=== PATIENT | female | born 2000 | race Caucasian/White ===

== ENCOUNTER 2024-07-16 07:41 | Emergency (ER) | payer OTHER ==
[~2024-07-16] VITALS: Ht 154.9 cm; Wt 57.5 kg
[2024-07-16] MEDS ORDERED: UNIS25TA5 PO (07:53)
[2024-07-16 08:25] LABS: KETONE, URINE AUTO RFX 1+ mg/dL (NEGATIVE); LEUKOCYTE ESTERASE UR AUTO RFX NEGATIVE (NEGATIVE); MUCUS, URINE RFX LARGE (NEGATIVE); NITRITE, URINE AUTO RFX NEGATIVE (NEGATIVE); RBC, URINE AUTO RFX 67 /HPF (0-3); SQUAM EPITHELIAL CELL UR AURFX 3 /HPF (0-6); WBC, URINE AUTO RFX 1 /HPF (0-3)
[2024-07-16 09:34] LABS: BASO % 0.4 % (0.0-1.0); EOS # 0.1 10^3/uL (0.0-0.5); EOS % 0.7 % (0.0-3.0); HEMATOCRIT 36.7 % (36.0-47.0); HEMOGLOBIN 12.7 g/dl (12.0-15.5); LYMPH # 2.4 10^3/uL (1.5-5.0); MEAN CORPUSCULAR HEMOGLOBIN 29.6 pg (27.0-33.0); MEAN CORPUSCULAR HGB CONC 34.6 g/dl (32.0-36.5); MEAN CORPUSCULAR VOLUME 85.5 fl (80.0-96.0); MONO # 0.9 10^3/uL (0.0-0.8); MONO % 8.1 % (2.0-8.0); NEUTROPHILS # 7.8 10^3/uL (1.5-8.5); NEUTROPHILS % 69.3 % (36.0-66.0); PLATELET COUNT, AUTOMATED 305 10^3/uL (150-450); RED BLOOD COUNT 4.29 10^6/uL (4.00-5.40); WHITE BLOOD COUNT 11.2 10^3/uL (4.0-10.0)
[2024-07-16 10:02] LABS: BLOOD UREA NITROGEN 9 MG/DL (9-23); CALCIUM LEVEL 9.5 MG/DL (8.5-10.1); CARBON DIOXIDE LEVEL 22 MMOL/L (20-31); CHLORIDE LEVEL 108 MMOL/L (98-107); CREATININE FOR GFR 0.59 MG/DL (0.55-1.30); GLOMERULAR FILTRATION RATE > 60.0 (>60); GLUCOSE, FASTING 84 MG/DL (60-100); POTASSIUM SERUM 4.6 MMOL/L (3.5-5.1); SODIUM LEVEL 138 MMOL/L (136-145)
[2024-07-16 12:34] VITALS: BP 109/57; TEMP 98.2; O2SAT 100
== END 2024-07-16 12:47 | disposition home or self-care (01) ==
LOC: M ED 07:41
DX: O26.832 Pregnancy related renal disease, second trimester (principal); Z3A.16 16 weeks gestation of pregnancy; Z79.899 Other long term (current) drug therapy

== ENCOUNTER 2024-07-17 12:29 | Emergency (ER) | payer OTHER ==
[~2024-07-17] VITALS: Ht 154.9 cm; Wt 57.3 kg
[~2024-07-17 12:29] MED LIST: UNIS25TA5 PO
[2024-07-17 13:33] LABS: KETONE, URINE AUTO RFX NEGATIVE (NEGATIVE); LEUKOCYTE ESTERASE UR AUTO RFX NEGATIVE (NEGATIVE); NITRITE, URINE AUTO RFX NEGATIVE (NEGATIVE); RBC, URINE AUTO RFX 1 /HPF (0-3); SQUAM EPITHELIAL CELL UR AURFX 4 /HPF (0-6); WBC, URINE AUTO RFX 0 /HPF (0-3)
[2024-07-17 13:51] LABS: BASO % 0.3 % (0.0-1.0); EOS # 0.1 10^3/uL (0.0-0.5); EOS % 0.7 % (0.0-3.0); HEMATOCRIT 36.9 % (36.0-47.0); HEMOGLOBIN 13.1 g/dl (12.0-15.5); LYMPH # 3.6 10^3/uL (1.5-5.0); LYMPH % 29.5 % (24.0-44.0); MEAN CORPUSCULAR HEMOGLOBIN 30.2 pg (27.0-33.0); MEAN CORPUSCULAR HGB CONC 35.5 g/dl (32.0-36.5); MONO # 1.1 10^3/uL (0.0-0.8); MONO % 8.8 % (2.0-8.0); NEUTROPHILS # 7.3 10^3/uL (1.5-8.5); NEUTROPHILS % 60.1 % (36.0-66.0); PLATELET COUNT, AUTOMATED 323 10^3/uL (150-450); RED BLOOD COUNT 4.34 10^6/uL (4.00-5.40); WHITE BLOOD COUNT 12.2 10^3/uL (4.0-10.0)
[2024-07-17 14:20] LABS: BLOOD UREA NITROGEN 9 MG/DL (9-23); CALCIUM LEVEL 9.6 MG/DL (8.5-10.1); CARBON DIOXIDE LEVEL 19 MMOL/L (20-31); CHLORIDE LEVEL 104 MMOL/L (98-107); CREATININE FOR GFR 0.61 MG/DL (0.55-1.30); GLOMERULAR FILTRATION RATE > 60.0 (>60); GLUCOSE, FASTING 77 MG/DL (60-100); POTASSIUM SERUM 4.2 MMOL/L (3.5-5.1); SODIUM LEVEL 136 MMOL/L (136-145)
[2024-07-17 15:59] VITALS: O2SAT 100
[2024-07-17 16:15] VITALS: BP 112/59; TEMP 98.2
== END 2024-07-17 16:28 | disposition home or self-care (01) ==
LOC: M ED 12:29
DX: O26.832 Pregnancy related renal disease, second trimester (principal); N13.30 Unspecified hydronephrosis; Z3A.16 16 weeks gestation of pregnancy

== ENCOUNTER 2024-11-22 16:53 | Outpatient (CLI) | payer OTHER ==
[~2024-11-22] VITALS: Ht 154.9 cm; Wt 67.9 kg
[2024-11-22 17:12] VITALS: BP 118/72
[2024-11-22] MEDS ORDERED: PRENTAB9 PO (17:19)
[2024-11-22 18:21] VITALS: BP 114/66
[2024-11-22 19:49] LABS: KETONE, URINE AUTO RFX NEGATIVE (NEGATIVE); MUCUS, URINE RFX SMALL (NEGATIVE); NITRITE, URINE AUTO RFX NEGATIVE (NEGATIVE); RBC, URINE AUTO RFX 1 /HPF (0-3); SQUAM EPITHELIAL CELL UR AURFX 27 /HPF (0-6); WBC, URINE AUTO RFX 3 /HPF (0-3)
[2024-11-22 19:50] LABS: LEUKOCYTE ESTERASE UR AUTO RFX 1+ (NEGATIVE)
[2024-11-22] MEDS: FLUCONAZOLE 50 MG TABLET PO ONE (20:04)
== END 2024-11-22 20:07 | disposition home or self-care (01) ==
LOC: M LDO 16:53
PROVIDERS: ATTEND Advanced Practice Midwife
DX: O23.593 Infection of other part of genital tract in pregnancy, third trimester (principal); B37.9 Candidiasis, unspecified; Z3A.35 35 weeks gestation of pregnancy
CPT/HCPCS: 59025; 81001; 87081; 87086; G0463

== ENCOUNTER 2024-12-07 21:50 | Outpatient (CLI) | payer OTHER ==
[~2024-12-07] VITALS: Ht 154.9 cm; Wt 69.1 kg
[~2024-12-07 21:50] MED LIST changes: +PRENTAB9 PO
[2024-12-07 22:23] VITALS: BP 103/61; O2SAT 96
== END 2024-12-07 23:28 | disposition home or self-care (01) ==
LOC: M LDO 21:50
PROVIDERS: ATTEND Obstetrics & Gynecology
DX: O47.1 False labor at or after 37 completed weeks of gestation (principal); Z3A.37 37 weeks gestation of pregnancy
CPT/HCPCS: 59025; G0463

== ENCOUNTER 2025-01-30 15:52 | Emergency (ER) | payer OTHER ==
[~2025-01-30] VITALS: Ht 154.9 cm; Wt 60.1 kg
[2025-01-30 16:33] LABS: BASO # 0.1 10^3/uL (0.0-0.2); BASO % 0.5 % (0.0-1.0); EOS # 0.3 10^3/uL (0.0-0.5); EOS % 3.1 % (0.0-3.0); LYMPH # 4.5 10^3/uL (1.5-5.0); LYMPH % 45.8 % (24.0-44.0); MONO # 0.8 10^3/uL (0.0-0.8); MONO % 7.9 % (2.0-8.0); NEUTROPHILS # 4.2 10^3/uL (1.5-8.5); NEUTROPHILS % 42.3 % (36.0-66.0); PLATELET COUNT, AUTOMATED 326 10^3/uL (150-450)
[2025-01-30] MEDS: NS (Normal Saline) 0.9% 1,000 ML IV ONE (16:40)
[2025-01-30 16:50] LABS: CALCIUM LEVEL 9.3 MG/DL (8.5-10.1); CARBON DIOXIDE LEVEL 26 MMOL/L (20-31); CHLORIDE LEVEL 106 MMOL/L (98-107); CREATININE FOR GFR 0.64 MG/DL (0.55-1.30); GLOMERULAR FILTRATION RATE > 90.0 (>60); POTASSIUM SERUM 4.0 MMOL/L (3.5-5.1); SODIUM LEVEL 142 MMOL/L (136-145)
[2025-01-30 17:01] LABS: KETONE, URINE AUTO RFX NEGATIVE (NEGATIVE); LEUKOCYTE ESTERASE UR AUTO RFX NEGATIVE (NEGATIVE); MUCUS, URINE RFX SMALL (NEGATIVE); NITRITE, URINE AUTO RFX NEGATIVE (NEGATIVE); RBC, URINE AUTO RFX TNTC /HPF (0-3); SQUAM EPITHELIAL CELL UR AURFX 0 /HPF (0-6); WBC, URINE AUTO RFX 1 /HPF (0-3)
[2025-01-30 18:34] VITALS: BP 98/65; TEMP 98.6; O2SAT 100
== END 2025-01-30 19:25 | disposition home or self-care (01) ==
LOC: M ED 15:52
DX: N92.0 Excessive and frequent menstruation with regular cycle (principal)